=== PATIENT | male | born 1980 | race African-American/Black ===

== ENCOUNTER 2020-12-23 18:58 | Emergency (ER) | payer OTHER ==
[~2020-12-23] VITALS: Ht 165.1 cm; Wt 81.7 kg
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
[~2020-12-23 18:58] MED LIST: BACTRIM DS TAB1 EACH PO; LORTAB 5 MG/5001 TAB PO; NOHOMEMEDICATIONS; NORCO 5-325 TA1 EACH PO; ULTRAM 50MG TAB50 MG PO
[2020-12-23 19:49] LABS: ABSOLUTE NEUTROPHILS 9.7 thou/uL (1.4-8.2); BASOPHILS 0.5 % (0.0-2.0); EOSINOPHILS 0.2 % (0.0-3.0); HEMATOCRIT 44.5 % (42.0-52.0); HEMOGLOBIN 13.7 gm/dL (14.0-18.0); LYMPHOCYTES 11.4 % (24.0-44.0); MCHC 30.7 g/dL (28.0-37.0); MCV 81.4 fL (80.0-100.0); MONOCYTES 5.4 % (1.0-8.0); PLATELET COUNT 178 thou/uL (150-400); POLYS 82.5 % (36.0-66.0); RBC 5.46 mil/uL (4.50-6.00); RDW 13.9 % (10.5-14.5); WBC 11.8 thou/uL (4.0-11.0)
[2020-12-23 19:54] LABS: CALCIUM 8.3 mg/dL (8.5-10.1); CREATININE 2.5 mg/dL (0.7-1.3); POTASSIUM 3.8 mmol/L (3.5-5.1)
[2020-12-23 20:07] LABS: URINE BILIRUBIN NEGATIVE (Negative); URINE BLOOD NEGATIVE (Negative); URINE CLARITY CLEAR; URINE COLOR YELLOW; URINE GLUCOSE-RANDOM* NEGATIVE (Negative); URINE KETONES NEGATIVE (Negative); URINE LEUKOCYTES-REFLEX NEGATIVE (Negative); URINE NITRITE-REFLEX NEGATIVE (Negative); URINE PROTEIN (DIPSTICK) 2+ (Negative); URINE SPECIFIC GRAVITY >= 1.030 (1.005-1.035); URINE UROBILINOGEN 0.2 E.U./dl (0.2-1.0)
[2020-12-23 20:15] LABS: AMP/METHAMP Negative (Negative); BACTERIA-REFLEX 1-9 Few /HPF (None Seen); BARBITURATES Negative (Negative); BENZODIAZEPINES Negative (Negative); CASTS None Seen /LPF (None Seen); COCAINE Negative (Negative); CRYSTALS None Seen /LPF (None Seen); METHADONE Negative (Negative); OPIATES Negative (Negative); PCP POSITIVE (Negative); SQUAMOUS None Seen /LPF (0-3); URINE RBC None Seen /HPF (0-2); URINE WBC-REFLEX 0-5 Rare /HPF (0-5)
[2020-12-23 20:16] LABS: TROPONIN-I <0.06 ng/mL (<0.06)
[2020-12-23 21:49] LABS: CALCIUM 7.2 mg/dL (8.5-10.1); CREATININE 1.9 mg/dL (0.7-1.3); POTASSIUM 3.8 mmol/L (3.5-5.1)
[2020-12-23 23:02] VITALS: BP 148/91
--- NOTE | 2020-12-24 07:20 | EKG ---
[place] [address] [place] [address] ELECTROCARDIOGRAM REPORT Name: ROE PAUL [id number] Admission: 12/23/20 Attend Phys: Discharge: 12/23/20 Date of : [birth year] Report #: [id number] [facility] ED Test Date: 2020-12-23 Test Time: 20:04:50 Pat Name: ROE PAUL Department: Room: Gender: Yard Cleaner: MIKE : 1980 Requested By: Lalo Zhang Order Number: [id number] MD: Ron Lobo Measurements Intervals [place] Rate: 109 P: 3 CT: 138 QRS: 28 QRSD: 90 T: 4 QT: 345 QTc: 465 Interpretive Statements Sinus tachycardia Probable left atrial enlargement Probable left ventricular hypertrophy Borderline T abnormalities, inferior leads J Point elevation V-1-3 No previous ECG available for comparison Electronically Signed On 12-24-2020 7:20:24 [employer]PECT[employer] by Ron Lobo [email or web address] <ELECTRONICALLY SIGNED> By: Ron Lobo MD, [facility] 12/24/20 0720 03 03 Ron Lobo MD, FACC /EPI
== END 2020-12-23 23:06 | disposition home or self-care (01) ==
LOC: ER 18:58
PROVIDERS: Nurse Practitioner
DX: R41.82 Altered mental status, unspecified (principal); F16.10 Hallucinogen abuse, uncomplicated; Z79.899 Other long term (current) drug therapy